=== PATIENT | male | born 1950 | race Caucasian/White ===

== ENCOUNTER → 2019-11-06 | Outpatient (CLI) | payer OTHER ==
[~2019-11-06] MED LIST: AMITRIPTYLINE H25 M2 PO; ASPIRIN PO; ATIVAN0.5 MG PO; CARAFATE 1 GM TA1 G1 PO; CHANTIX1 MG PO; GLUCOSAMINE &1 EACH PO; HYDROCHLOROTHIA25 M2 PO; KETOROLAC 0.5% E5 ML OPHTHALMIC; LIPITOR20 MG PO; LISINOPRIL10 MG PO; MOBIC15 MG PO; PLAVIX 75 MG TA75 MG PO; PRED-FORTE OPHTH1 M1 OPHTHALMIC
== END ==
LOC: SJCVCIMAG 10-13 14:19
PROVIDERS: ATTEND Internal Medicine Cardiovascular Disease
DX: I65.23 Occlusion and stenosis of bilateral carotid arteries (principal); I49.3 Ventricular premature depolarization; I73.9 Peripheral vascular disease, unspecified; I25.10 Atherosclerotic heart disease of native coronary artery without angina pectoris; J44.9 Chronic obstructive pulmonary disease, unspecified; E78.5 Hyperlipidemia, unspecified; I10 Essential (primary) hypertension; Z87.891 Personal history of nicotine dependence

== ENCOUNTER → 2020-12-07 | Outpatient (CLI) | payer OTHER | LOC: SJCVCIMAG 09:44 | PROVIDERS: ATTEND Internal Medicine Cardiovascular Disease | DX: M79.89 Other specified soft tissue disorders (principal); M79.605 Pain in left leg; E78.5 Hyperlipidemia, unspecified; I73.9 Peripheral vascular disease, unspecified; I25.10 Atherosclerotic heart disease of native coronary artery without angina pectoris; J44.9 Chronic obstructive pulmonary disease, unspecified; Z79.899 Other long term (current) drug therapy ==

== ENCOUNTER → 2020-12-19 | Outpatient (CLI) | payer OTHER | LOC: SJCVC 10:30 | PROVIDERS: ATTEND Internal Medicine Cardiovascular Disease | DX: R22.42 Localized swelling, mass and lump, left lower limb (principal); J44.9 Chronic obstructive pulmonary disease, unspecified; E78.5 Hyperlipidemia, unspecified; I25.10 Atherosclerotic heart disease of native coronary artery without angina pectoris; I10 Essential (primary) hypertension; I73.9 Peripheral vascular disease, unspecified; Z79.899 Other long term (current) drug therapy; Z88.8 Allergy status to other drugs, medicaments and biological substances ==

== ENCOUNTER → 2021-02-06 | Outpatient (CLI) | payer OTHER | LOC: SJCVC 09:32 → SJCVCIMAG 09:32 | PROVIDERS: ATTEND Internal Medicine Cardiovascular Disease | DX: I65.23 Occlusion and stenosis of bilateral carotid arteries (principal); I25.10 Atherosclerotic heart disease of native coronary artery without angina pectoris; I10 Essential (primary) hypertension; E78.00 Pure hypercholesterolemia, unspecified; I77.9 Disorder of arteries and arterioles, unspecified; I73.9 Peripheral vascular disease, unspecified; F10.20 Alcohol dependence, uncomplicated; E78.5 Hyperlipidemia, unspecified; Z79.899 Other long term (current) drug therapy; Z87.891 Personal history of nicotine dependence; Z88.8 Allergy status to other drugs, medicaments and biological substances ==